=== PATIENT | male | born 1955 ===

== ENCOUNTER 2019-09-11 08:53 | Emergency (ER) | payer BC ==
--- NOTE | 2019-09-11 09:10 | ED ---
Neurological HPI - HPI Summary HPI Summary: The pt is a 64 yr old male presenting to [facility] c/o left sided facial weakness and numbness beginning yesterday. He notes that he has hx of [place] Palsy several years [employer] and mentions that his current symptoms feel similar to it. He rates his current pain severity a 0/10. No aggravating or alleviating factors noted. He also denies any fever. - History of Current Complaint Chief Complaint: EDNeurologicalDeficit Stated Complaint: STROKE SYMPTOMS PER PT Time Seen by Provider: 09/11/19 09:06 Hx Obtained From: Patient Onset/Duration: Sudden Onset, Started days ago, Still Present Timing: Constant Onset Severity: Mild Current Severity: None Neurological Deficit Location: Facial Pain Intensity: 0 Pain Scale Used: 0-10 Numeric Aggravating: Nothing Alleviating: Nothing Associated Signs and Symptoms: Negative: Fever - Allergy/Home Medications Allergies/Adverse Reactions: Allergies Allergy/AdvReac Type Severity Reaction Status Date / Time No Known Allergies Allergy Verified 09/11/19 09:36 Home Medications: Home Medications Ascorbic Acid TAB* [Vitamin C TAB*] 1,000 mg PO DAILY 09/11/19 [History Confirmed 09/11/19] Atorvastatin* [Lipitor 10 MG*] 10 mg PO DAILY 09/11/19 [History Confirmed ] Glimepiride (NF) 2 mg PO BID 09/11/19 [History Confirmed 09/11/19] Magnesium 30 mg PO DAILY 09/11/19 [History Confirmed 09/11/19] Sitagliptin Phosphate [Januvia] 100 mg PO DAILY 09/11/19 [History Confirmed 05/23] Zinc 50 mg PO DAILY 09/11/19 [History Confirmed 09/11/19] PMH/Surg Hx/FS Hx/Imm Hx Endocrine/Hematology History: Reports: Hx Diabetes Denies: Hx Thyroid Disease Cardiovascular History: Denies: Hx Hypertension, Hx Pacemaker/ICD Respiratory History: Reports: Hx Sleep Apnea - NO CPAP OR BIPAP Denies: Hx Asthma, Hx Chronic Obstructive Pulmonary Disease (COPD) GI History: Denies: Hx Ulcer, Other GI Disorders History: Denies: Other Problems/Disorders Musculoskeletal History: Reports: Hx Arthritis - BILATERAL KNEES Sensory History: Reports: Hx Glaucoma - BILATERAL Denies: Hx Contacts or Glasses, Hx Hearing Aid Opthamlomology History: Reports: Hx Glaucoma - BILATERAL Denies: Hx Contacts or Glasses Psychiatric History: Denies: Hx Panic Disorder - Surgical History Surgery Procedure, Year, and Place: Hernia repair June 15, [address] Dior. lt knee surgery Hx Anesthesia Reactions: No Infectious Disease History: No Infectious Disease History: Denies: Hx Clostridium Difficile, Hx Hepatitis, Hx Human Immunodeficiency Virus (HIV), Hx of Known/Suspected MRSA, Hx Shingles, Hx Tuberculosis, Hx Known/ Suspected VRE, Hx Known/Suspected VRSA, History Other Infectious Disease, Traveled Outside the [place] in Last 30 Days - Family History Known Family History: Positive: Diabetes - Social History Alcohol Use: Occasionally Hx Substance Use: No Substance Use Type: Reports: None Hx Tobacco Use: Yes Smoking Status (MU): Heavy Every Day Tobacco Smoker Type: Cigarettes Amount Used/How Often: 1 ppd Review of Systems Negative: Fever Positive: Weakness, Numbness All Other Systems Reviewed And Are Negative: Yes Physical Exam - Summary Physical Exam Summary: VITAL SIGNS: Reviewed. GENERAL: Patient is a well-developed and nourished female who is lying comfortable in the stretcher. Patient is not in any acute respiratory distress. HEAD AND FACE: No signs of trauma. No ecchymosis, hematomas or skull depressions. No sinus tenderness. EYES: PERRLA, EOMI x 2, No injected conjunctiva, no nystagmus. EARS: Hearing grossly intact. Ear canals and tympanic membranes are within normal limits. MOUTH: Oropharynx within normal limits. NECK: Supple, trachea is midline, no adenopathy, no JVD, no carotid bruit, no c- spine tenderness, neck with full ROM. CHEST: Symmetric, no tenderness at palpation. LUNGS: Clear to auscultation bilaterally. No wheezing or crackles. CVS: Regular rate and rhythm, S1 and S2 present, no murmurs or gallops appreciated. ABDOMEN: Soft, non-tender. No signs of distention. No rebound, no guarding, and no masses palpated. Bowel sounds are normal. EXTREMITIES: FROM in all major joints, no edema, no cyanosis or clubbing. NEURO: Alert and oriented x 3. No acute neurological deficits. Speech is normal and follows commands. Delayed blinking in left eye, numbness on left side of lip and face. GCS of 15 (See scale). SKIN: Dry and warm. Triage Information Reviewed: Yes Vital Signs On Initial Exam: Initial Vitals Temp Pulse Resp BP Pulse Ox 98.5 F 65 14 185/98 96 09/11/19 08:54 09/11/19 08:54 09/11/19 08:54 09/11/19 08:54 09/11/19 08:54 Vital Signs Reviewed: Yes - Isaiah Coma Scale Best Eye Response: 4 - Spontaneous Best Motor Response: 6 - Obeys Commands Best Verbal Response: 5 - Oriented Coma Scale Total: 15 Procedures - Sedation Patient Received Moderate/Deep Sedation with Procedure: No Diagnostics - Vital Signs Vital Signs Temp Pulse Resp BP Pulse Ox 09/11/19 08:54 98.5 F 65 14 185/98 96 - Laboratory Result Diagrams: 09/11/19 09:24 09/11/19 09:24 Lab Statement: Any lab studies that have been ordered have been reviewed, and results considered in the medical decision making process. - CT Brain CT CT Interpretation Completed By: Radiologist Summary of CT Findings: IMPRESSION: 1. No acute intracranial abnormality by CT. ED Physician has reviewed this report. Course/Dx - Course Assessment/Plan: The pt is a 64 yr old male presenting to [facility] c/o left sided facial weakness and numbness beginning yesterday. He notes that he has hx of [place] Palsy several years [employer] and mentions that his current symptoms feel similar to it. He rates his current pain severity a 0/10. No aggravating or alleviating factors noted. He also denies any fever. Head CT IMPRESSION: 1. No acute intracranial abnormality by CT. Patient was given Valtrex and prednisone since I believe that the patient has [place] palsy. I sent Lyme titer and the patient will follow-up with his primary care physician. At this point, I discussed all the findings and test results with the patient. Patient was instructed to return to the emergency room immediately if any of the symptoms return or worsen. Patient understands and agrees. Neurological exam before discharge: Patient is alert and oriented x 3. No acute neurological deficits. Patient's vital signs are stable. Patient is to follow up with [facility] in the next 2 3 days. They understand and agree. The plan of care was discussed with the patient and patient understands and agrees with the plan of care. All questions were answered at patient satisfaction. There were no further complaints or concerns. - Diagnoses Provider Diagnoses: Chiang's palsy Discharge ED - Sign-Out/Discharge Documenting (check all that apply): Patient Departure - discharge - Discharge Plan Condition: Stable Disposition: HOME Prescriptions: predniSONE TAB* [Deltasone 20 MG TAB*] 60 mg PO DAILY #15 tab ValACYclovir (*) [Valtrex 1 GM(*)] 1 gm PO BID #14 tab Patient Education Materials: Chiang Palsy (ED) Referrals: Arnav Quintanilla MD [Primary Care Provider] - 3 Days Additional Instructions: Please return to the ED for any new or worsening symptoms. Please follow up with your primary care provider within 3 days. Please wear the eye patch consistently but mostly at night. - Billing Disposition and Condition Condition: STABLE Disposition: Home - Attestation Statements Document Initiated by José Luisibe: Yes Documenting Scribe: Joshua Kauffman Provider For Whom Hanh is Documenting (Include Credential): Hayden Limon MD Scribe Attestation: Joshua Cortes, scribed for Hayden Limon MD on 09/12/19 at 1538. Scribe Documentation Reviewed: Yes Provider Attestation: The documentation as recorded by the josé [email or web address] yost accurately reflects the service I personally performed and the decisions made by , Hayden Limon MD Status of Scribe Document: Viewed
[2019-09-11 09:33] LABS: ABS Eosinophils 0.3 10^3/ul (0-0.6); ABS Lymphocytes 1.9 10^3/ul (1.0-4.8); ABS Monocytes 0.6 10^3/ul (0-0.8); ABS Neutrophils 4.5 10^3/ul (1.5-7.7); Eosinophil % 3.9 %; Hematocrit 45 % (42-52); Hemoglobin 15.6 g/dL (14.0-18.0); Lymphocyte % 25.7 %; Mean Corpuscular HGB Conc 35 g/dL (31-36); Mean Corpuscular Hemoglobin 28 pg (27-31); Mean Corpuscular Volume 82 fL (80-94); Mean Platelet Volume 9.8 fL (7.4-10.4); Platelet Count 126 10^3/uL (150-450); Red Blood Count 5.52 10^6 /uL (4.18-5.48); Red Cell Distribution Width 15 % (10-15); White Blood Count 7.3 10^3/uL (3.5-10.8)
[2019-09-11 09:38] LABS: Urine Appearance Clear; Urine Bilirubin Negative (Negative); Urine Blood Negative (Negative); Urine Color Yellow; Urine Glucose 2+(150 mg/dL) (Negative); Urine Ketones Negative (Negative); Urine Nitrite Negative (Negative); Urine Protein Negative (Negative); Urine Specific Gravity 1.013 (1.010-1.030); Urine Urobilinogen Negative (Negative)
[2019-09-11 09:39] LABS: INR 0.92 (0.82-1.09)
[2019-09-11 09:48] LABS: Albumin 4.5 g/dL (3.2-5.2); Albumin/Globulin Ratio 1.5 (1-3); BUN/Creatinine Ratio 20.4 (8-20); Calcium 9.9 mg/dL (8.6-10.3); EGFR African American 99.6 (>60); EGFR Non-African American 82.3 (>60); Globulin 3.1 g/dL (2-4); Total Bilirubin 0.3 mg/dL (0.2-1.0); Total Protein 7.6 g/dL (6.4-8.9)
[2019-09-11] MEDS ORDERED: ValACYclovir (*) 1 GM TAB PO ONE (11:09)
[2019-09-11] MEDS ORDERED: predniSONE TAB* 20 MG PO ONE ×2 (11:10→12:19)
[2019-09-11 13:23] VITALS: BP 141/96
== END 2019-09-11 13:22 | disposition home or self-care (01) ==
LOC: ED 08:53
DX: G51.0 Bell's palsy (principal); E11.9 Type 2 diabetes mellitus without complications; Z79.84 Long term (current) use of oral hypoglycemic drugs; F17.210 Nicotine dependence, cigarettes, uncomplicated
CPT/HCPCS: 36415; 70450; 80053; 81003; 83605; 85025; 85610; 86618; 99283; A9270-GY; J7512